=== PATIENT | female | born 1980 | race Asian ===

== ENCOUNTER 2018-11-07 22:00 | Observation (INO) | payer SELFPAY ==
[~2018-11-07] VITALS: Ht 159 cm; Wt 66.2 kg
[2018-11-07] MEDS ORDERED: TERBUTALINE 1 MG/ML VIAL SUBQ SCH (22:45)
[2018-11-07] MEDS ORDERED: TERBUTALINE 1 MG/ML VIAL SUBQ ONE (23:03)
== END 2018-11-07 23:20 | disposition left against medical advice (07) ==
LOC: MLD 22:00
PROVIDERS: ADMIT Obstetrics & Gynecology; ATTEND Obstetrics & Gynecology
DX: O26.893 Other specified pregnancy related conditions, third trimester (principal); R10.9 Unspecified abdominal pain; Z3A.36 36 weeks gestation of pregnancy
CPT/HCPCS: 96372; G0378; J3105